=== PATIENT | female | born 1945 | race Caucasian/White ===

== ENCOUNTER 2018-06-15 21:37 | Inpatient (IN) | payer MEDICARE, MEDICAID | END 2018-06-19 15:06 | disposition home or self-care (01) | LOC: ED HOLD 06-16 00:14 → ORTHO 4S 06-18 18:27 → ER 21:37 → ORTHO 4S 06-16 04:00 | DX: J96.90 Respiratory failure, unspecified, unspecified whether with hypoxia or hypercapnia (principal); J44.1 Chronic obstructive pulmonary disease with (acute) exacerbation ==

== ENCOUNTER 2018-07-03 09:41 | Emergency (ER) | payer MEDICARE, MEDICAID ==
[~2018-07-03] VITALS: Ht 149.9 cm; Wt 47.7 kg
[~2018-07-03 09:41] MED LIST: ALBU18HF2 INH; ALBU2.5V7 NEB; BAC10T PO; BUDE10.22 INH; CEFD300C3 PO; CYA500T PO; FLUT15.88; LACT1CAP26 PO; MONT10TA21 PO; NITR0.4T51 SL; PRED10TA23 PO; ROPI0.252 PO; SENN-162 PO; TRAZ-219 PO
[2018-07-03 09:53] VITALS: BP 108/61
[2018-07-03] MEDS ORDERED: ONDA8TAB13 PO (10:15)
[2018-07-03] MEDS ORDERED: morphine 4 MG/ML inj SYRINge IM ONE (10:20)
[2018-07-03] MEDS ORDERED: ondansetron 4mg rapidly disintigrating tab PO ONE (10:20)
[2018-07-03] MEDS ORDERED: cloNIDine 0.1 MG/24 HOUR patch (7 day patch) TD ONE (10:20)
== END 2018-07-03 10:35 | disposition home or self-care (01) ==
LOC: ER 09:42
DX: F11.23 Opioid dependence with withdrawal (principal); I25.2 Old myocardial infarction; J44.9 Chronic obstructive pulmonary disease, unspecified; F17.200 Nicotine dependence, unspecified, uncomplicated; F12.90 Cannabis use, unspecified, uncomplicated; Z90.710 Acquired absence of both cervix and uterus; Z88.6 Allergy status to analgesic agent; Z91.041 Radiographic dye allergy status
CPT/HCPCS: 96372; 99283; J2270

== ENCOUNTER 2018-07-03 20:26 | Emergency (ER) | payer MEDICARE, MEDICAID ==
[~2018-07-03] VITALS: Ht 149.9 cm; Wt 45.0 kg
[~2018-07-03 20:26] MED LIST changes: +ONDA8TAB13 PO
[2018-07-03 20:36] VITALS: BP 138/84
[2018-07-03] MEDS ORDERED: HYDROmorphone 2mg tablet PO PRN (22:50)
[2018-07-03] MEDS ORDERED: cloNIDine 0.1 mg tablet PO ONE (22:50)
[2018-07-03] MEDS ORDERED: ondansetron 4mg rapidly disintigrating tab PO ONE (22:50)
== END 2018-07-03 23:04 | disposition home or self-care (01) ==
LOC: ER 20:26
DX: F11.23 Opioid dependence with withdrawal (principal); I25.2 Old myocardial infarction; J44.9 Chronic obstructive pulmonary disease, unspecified; G89.29 Other chronic pain; F12.90 Cannabis use, unspecified, uncomplicated; Z88.6 Allergy status to analgesic agent; Z88.8 Allergy status to other drugs, medicaments and biological substances; Z90.710 Acquired absence of both cervix and uterus
CPT/HCPCS: 99284

== ENCOUNTER 2018-07-04 13:33 | Emergency (ER) | payer MEDICARE, MEDICAID ==
[~2018-07-04] VITALS: Ht 149.9 cm; Wt 45.5 kg
[2018-07-04] MEDS ORDERED: normal saline 1000ML IV soln IVB ONE (14:50)
[2018-07-04 15:30] LABS: BASOPHILS # (AUTO) 0.1 X10'3 (0-0.2); BASOPHILS % (AUTO) 0.8 % (0-1); EOSINOPHILS # (AUTO) 0.2 X10'3 (0-0.9); EOSINOPHILS % (AUTO) 2.1 % (0-6); HEMOGLOBIN 12.1 g/dl (12.0-16.0); LYMPHOCYTES # (AUTO) 1.7 X10'3 (1.1-4.8); MEAN CORPUSCULAR HEMOGLOBIN 31.1 PG (27.0-31.0); MEAN CORPUSCULAR HGB CONC 32.6 g/dL (33.0-36.5); MEAN CORPUSCULAR VOLUME 95.4 FL (78-98); MEAN PLATELET VOLUME 6.6 FL (7.4-10.4); MONOCYTES # (AUTO) 0.3 X10'3 (0-0.9); MONOCYTES % (AUTO) 3.5 % (2-12); NEUTROPHILS % (AUTO) 69.6 % (42-75); PLATELET COUNT 375 X10'3 (140-440); RED BLOOD COUNT 3.88 X10'6 (4.20-5.60); RED CELL DISTRIBUTION WIDTH 15.8 % (11.5-14.5); WHITE BLOOD COUNT 7.1 X10'3 (4.5-11.0)
[2018-07-04 15:37] LABS: ALANINE AMINOTRANSFERASE 10 U/L (12-78); ALBUMIN 3.4 G/DL (3.4-5.0); ALKALINE PHOSPHATASE 52 IU/L (46-116); ANION GAP 9 (8-16); ASPARTATE AMINO TRANSFERASE 12 U/L (10-37); BILIRUBIN,TOTAL 0.2 MG/DL (0.1-1.0); BLOOD UREA NITROGEN 12 MG/DL (7-18); BUN/CREATININE RATIO 19.4 (6.6-38.0); CHLORIDE 102 MMOL/L (99-107); CREATININE 0.62 MG/DL (0.40-0.90); ETHANOL 0.214 GM/DL (0.0-0.010); GLUCOSE 80 MG/DL (70-104); POTASSIUM 3.5 MMOL/L (3.5-5.1); SODIUM 140 MMOL/L (135-145); TOTAL CARBON DIOXIDE 28.8 MMOL/L (24-32); TOTAL PROTEIN 6.9 G/DL (6.4-8.2); eGFR > 90 ML/MIN
--- NOTE | 2018-07-04 16:22 | NUR ---
FIRST STRIAGHT CATH ATTEMPTED AT THIS TIME, NOT ABLE TO COLLECT URINE DUE TO EMPTY BLADDER.
--- NOTE | 2018-07-04 17:14 | NUR ---
pt not cooperative with cleaning wound, kept pulling away, yelling "Ow! Stop it! That hurts!" I explained to patient that the doctor wants her wound to be cleaned to make sure she doesn't need stitches. Dr. Lima made aware.
[2018-07-04 18:30] VITALS: BP 98/55
== END 2018-07-04 18:32 | disposition home or self-care (01) ==
LOC: ER 13:33
DX: S00.83XA Contusion of other part of head, initial encounter (principal); W01.198A Fall on same level from slipping, tripping and stumbling with subsequent striking against other object, initial encounter; Y93.89 Activity, other specified; Y92.018 Other place in single-family (private) house as the place of occurrence of the external cause; F10.120 Alcohol abuse with intoxication, uncomplicated; F11.20 Opioid dependence, uncomplicated; Y90.7 Blood alcohol level of 200-239 mg/100 ml; B18.2 Chronic viral hepatitis C; G89.29 Other chronic pain; I25.2 Old myocardial infarction; J44.9 Chronic obstructive pulmonary disease, unspecified; R10.9 Unspecified abdominal pain; F12.90 Cannabis use, unspecified, uncomplicated; Z90.710 Acquired absence of both cervix and uterus; Z88.6 Allergy status to analgesic agent; Z91.041 Radiographic dye allergy status
CPT/HCPCS: 36415; 70450; 72125; 80053; 80320; 85025; 93005; 99284; J7030; 96360

== ENCOUNTER 2018-07-25 20:05 | Emergency (ER) | payer MEDICARE, MEDICAID ==
[~2018-07-25] VITALS: Ht 149.9 cm; Wt 47.7 kg
[~2018-07-25 20:05] MED LIST changes: -CEFD300C3 PO; -CYA500T PO; -NITR0.4T51 SL; -PRED10TA23 PO
[2018-07-25 22:01] LABS: CLARITY,URINE CLEAR (Clear); COLOR,URINE YELLOW (Yellow); GLUCOSE, URINE NEGATIVE (Neg); KETONES,URINE NEGATIVE (Neg); LEUKOCYTE ESTERASE ,URINE NEGATIVE (Neg); NITRITES, URINE NEGATIVE (Neg); OCCULT BLOOD,URINE NEGATIVE (Neg); PROTEIN,URINE NEGATIVE (Neg); UROBILINOGEN,URINE 0.2 E.U/dL (0.2-1.0)
[2018-07-25 22:05] LABS: UA COLLECTION TYPE CLN CATCH MIDSTREAM
[2018-07-25] MEDS ORDERED: ipratropium/albuterol 3ml nebule NEB ONE (22:35)
[2018-07-25 22:50] LABS: BASOPHILS # (AUTO) 0.1 X10'3 (0-0.2); BASOPHILS % (AUTO) 0.7 % (0-1); EOSINOPHILS # (AUTO) 0.1 X10'3 (0-0.9); EOSINOPHILS % (AUTO) 0.7 % (0-6); HEMATOCRIT 35.3 % (35.0-45.0); HEMOGLOBIN 11.5 g/dl (12.0-16.0); LYMPHOCYTES # (AUTO) 1.5 X10'3 (1.1-4.8); LYMPHOCYTES % (AUTO) 10.6 % (21-51); MEAN CORPUSCULAR HEMOGLOBIN 31.3 PG (27.0-31.0); MEAN CORPUSCULAR HGB CONC 32.7 g/dL (33.0-36.5); MEAN CORPUSCULAR VOLUME 95.7 FL (78-98); MEAN PLATELET VOLUME 7.1 FL (7.4-10.4); MONOCYTES # (AUTO) 0.6 X10'3 (0-0.9); MONOCYTES % (AUTO) 4.3 % (2-12); NEUTROPHILS % (AUTO) 83.7 % (42-75); PLATELET COUNT 327 X10'3 (140-440); RED BLOOD COUNT 3.69 X10'6 (4.20-5.60); RED CELL DISTRIBUTION WIDTH 15.2 % (11.5-14.5); WHITE BLOOD COUNT 14.3 X10'3 (4.5-11.0)
--- NOTE | 2018-07-25 22:50 | NUR ---
RT AT BEDSIDE.
[2018-07-25 23:06] LABS: ALANINE AMINOTRANSFERASE 8 U/L (12-78); ALBUMIN 3.3 G/DL (3.4-5.0); ALBUMIN/GLOBULIN RATIO 0.9 (1.1-1.5); ALKALINE PHOSPHATASE 67 IU/L (46-116); ANION GAP 3 (8-16); ASPARTATE AMINO TRANSFERASE 8 U/L (10-37); BILIRUBIN,TOTAL 0.1 MG/DL (0.1-1.0); BLOOD UREA NITROGEN 18 MG/DL (7-18); BUN/CREATININE RATIO 33.3 (6.6-38.0); CALCIUM 9.4 MG/DL (8.5-10.1); CHLORIDE 104 MMOL/L (99-107); CREATININE 0.54 MG/DL (0.40-0.90); GLUCOSE 104 MG/DL (70-104); POTASSIUM 4.1 MMOL/L (3.5-5.1); SODIUM 138 MMOL/L (135-145); TOTAL CARBON DIOXIDE 31.2 MMOL/L (24-32); TOTAL PROTEIN 6.9 G/DL (6.4-8.2); TROPONIN I < 0.04 NG/ML (0.0-0.05); eGFR > 90 ML/MIN
[2018-07-25] MEDS ORDERED: ALBU18HF2 INH (23:12)
[2018-07-25] MEDS ORDERED: INHA1INH2 (23:12)
[2018-07-25] MEDS ORDERED: AZIT500T PO (23:12)
[2018-07-25 23:26] VITALS: BP 126/49
== END 2018-07-25 23:27 | disposition home or self-care (01) ==
LOC: ER 20:06
DX: J44.1 Chronic obstructive pulmonary disease with (acute) exacerbation (principal); G89.29 Other chronic pain; M54.5 Low back pain; J06.9 Acute upper respiratory infection, unspecified; R10.9 Unspecified abdominal pain; I25.2 Old myocardial infarction; F12.90 Cannabis use, unspecified, uncomplicated; Z90.710 Acquired absence of both cervix and uterus; Z87.891 Personal history of nicotine dependence; Z88.6 Allergy status to analgesic agent; Z88.8 Allergy status to other drugs, medicaments and biological substances; Z79.899 Other long term (current) drug therapy
CPT/HCPCS: 36415; 71045; 80053; 81003; 84484; 85025; 94640; 94760; 99284

== ENCOUNTER 2018-11-20 00:38 | Emergency (ER) | payer MEDICARE, MEDICAID ==
[~2018-11-20] VITALS: Ht 149.9 cm; Wt 45.5 kg
[~2018-11-20 00:38] MED LIST changes: +ASPI-1265 PO; -BAC10T PO; +CYCL-1 PO; +ESTR2TAB6 PO; -FLUT15.88; +INHA1INH2; +MORP30TA PO; +NITR0.4T51; +OXYC-145 PO
[2018-11-20 02:40] VITALS: BP 118/70
--- NOTE | 2018-11-20 02:42 | NUR ---
PT REFUSED LAB DRAW.
--- NOTE | 2018-11-20 02:42 | NUR ---
WHILE ATTEMPTING TO GET A LAB DRAW, PT ADMITTED TO DRINKING ETOH TONIGHT AND TAKING HER PAIN MEDS
[2018-11-20 02:52] LABS: CLARITY,URINE CLEAR (Clear); COLOR,URINE YELLOW (Yellow); GLUCOSE, URINE NEGATIVE (Neg); KETONES,URINE NEGATIVE (Neg); LEUKOCYTE ESTERASE ,URINE NEGATIVE (Neg); NITRITES, URINE NEGATIVE (Neg); OCCULT BLOOD,URINE TRACE-INTACT (Neg); PROTEIN,URINE NEGATIVE (Neg); UROBILINOGEN,URINE 0.2 E.U/dL (0.2-1.0)
[2018-11-20 03:01] LABS: UA COLLECTION TYPE OTHER
[2018-11-20 03:02] LABS: BACTERIA,URINE FEW /HPF (Neg); RBC,URINE 0-2 /HPF (0-2); SQUAMOUS EPITHELIAL CELL,UR FEW /LPF (FEW); URINE AMPHETAMINE SCREEN NEGATIVE (Neg); URINE BARBITUATE SCREEN NEGATIVE (Neg); URINE BENZODIAZEPINES SCREEN NEGATIVE (Neg); URINE CANNABINOID SCREEN POSITIVE (Neg); URINE COCAINE SCREEN NEGATIVE (Neg); URINE METHADONE SCREEN NEGATIVE (Neg); URINE OPIATE SCREEN POSITIVE (Neg); URINE PHENCYCLIDINE SCREEN NEGATIVE (Neg); WBC,URINE NONE SEEN /HPF (0-4)
== END 2018-11-20 03:32 | disposition home or self-care (01) ==
LOC: ER 00:39
DX: M25.551 Pain in right hip (principal); R51 Headache; M54.5 Low back pain; G89.29 Other chronic pain; F10.129 Alcohol abuse with intoxication, unspecified; I25.10 Atherosclerotic heart disease of native coronary artery without angina pectoris; I25.2 Old myocardial infarction; J44.9 Chronic obstructive pulmonary disease, unspecified; F12.90 Cannabis use, unspecified, uncomplicated; Z86.19 Personal history of other infectious and parasitic diseases; Z90.710 Acquired absence of both cervix and uterus; Z88.5 Allergy status to narcotic agent; Z88.8 Allergy status to other drugs, medicaments and biological substances; Z79.82 Long term (current) use of aspirin; Z79.899 Other long term (current) drug therapy; Y90.9 Presence of alcohol in blood, level not specified; W18.39XA Other fall on same level, initial encounter; Y93.89 Activity, other specified; Y92.89 Other specified places as the place of occurrence of the external cause; Y99.8 Other external cause status
CPT/HCPCS: 36415; 70450; 72110; 72192; 73502; 80305; 81001; 99284

== ENCOUNTER 2018-12-09 20:03 | Inpatient (IN) | payer MEDICARE, MEDICAID ==
[~2018-12-09] VITALS: Ht 149.9 cm; Wt 46.4 kg
[2018-12-09 21:06] LABS: BASOPHILS # (AUTO) 0.1 X10'3 (0-0.2); BASOPHILS % (AUTO) 0.8 % (0-1); EOSINOPHILS # (AUTO) 0.2 X10'3 (0-0.9); EOSINOPHILS % (AUTO) 2.2 % (0-6); HEMATOCRIT 38.5 % (35.0-45.0); HEMOGLOBIN 12.8 g/dl (12.0-16.0); LYMPHOCYTES # (AUTO) 1.4 X10'3 (1.1-4.8); LYMPHOCYTES % (AUTO) 12.8 % (21-51); MEAN CORPUSCULAR HGB CONC 33.4 g/dL (33.0-36.5); MEAN CORPUSCULAR VOLUME 95.9 FL (78-98); MEAN PLATELET VOLUME 6.9 FL (7.4-10.4); MONOCYTES # (AUTO) 0.6 X10'3 (0-0.9); MONOCYTES % (AUTO) 5.5 % (2-12); NEUTROPHILS # (AUTO) 8.5 X10'3 (1.8-7.7); NEUTROPHILS % (AUTO) 78.7 % (42-75); PLATELET COUNT 370 X10'3 (140-440); RED BLOOD COUNT 4.01 X10'6 (4.20-5.60); WHITE BLOOD COUNT 10.8 X10'3 (4.5-11.0)
[2018-12-09] MEDS ORDERED: ondansetron 4mg rapidly disintigrating tab PO ONE (21:15)
[2018-12-09 21:18] LABS: ALANINE AMINOTRANSFERASE 10 U/L (12-78); ALBUMIN 3.7 G/DL (3.4-5.0); ALBUMIN/GLOBULIN RATIO 1.1 (1.1-1.5); ALKALINE PHOSPHATASE 55 IU/L (46-116); ANION GAP 7 (8-16); ASPARTATE AMINO TRANSFERASE 7 U/L (10-37); BILIRUBIN,TOTAL 0.2 MG/DL (0.1-1.0); BLOOD UREA NITROGEN 12 MG/DL (7-18); CALCIUM 9.2 MG/DL (8.5-10.1); CHLORIDE 103 MMOL/L (99-107); GLUCOSE 94 MG/DL (70-104); POTASSIUM 3.8 MMOL/L (3.5-5.1); SODIUM 140 MMOL/L (135-145); TOTAL PROTEIN 7.1 G/DL (6.4-8.2); eGFR > 90 ML/MIN
[2018-12-09] MEDS ORDERED: morphine 4 MG/ML inj SYRINge IM ONE (21:20)
[2018-12-09] MEDS ORDERED: iohexol 350MG/ML 100ml bottle IV ONE (21:28)
[2018-12-09 21:52] LABS: PARTIAL THROMBOPLASTIN TIME 29 SECONDS (22-32)
--- NOTE | 2018-12-09 22:55 | NUR ---
ULTRASOUND IV PLACED FOR CT CONTRAST, PAGED CT
--- NOTE | 2018-12-09 23:15 | NUR ---
NOTIFIED BY NEUROLOGY PROFESSOR THAT ULTRASOUND IV DOES NOT FLUSH FAST ENOUGH TO USE FOR CONTRAST. WILL PLACE SECOND LINE
[2018-12-10] VITALS (14 sets, daily range): BP systolic 114–154; BP diastolic 55–104
--- NOTE | 2018-12-10 00:08 | NUR ---
TOLD BY CT THAT SECOND IV WAS "WORSE THAN FIRST IV" TO USE FOR CT CONTRAST.
--- NOTE | 2018-12-10 00:12 | NUR ---
WAS NOT NOTIFIED BY GENERAL REPAIRER THAT PT WAS GOING TO CT OR IF EITHER IV SITES WERE ACCETABLE FOR CT CONTRAST AFTER ALL
[2018-12-10] MEDS ORDERED: BACL10TA PO (01:24)
[2018-12-10] MEDS ORDERED: MELA3TAB64 PO (01:24)
[2018-12-10] MEDS ORDERED: TIOT18CA3 INH (01:27)
[2018-12-10] MEDS ORDERED: magnesium hydroxide 30ml (MOM) UD suspension PO PRN (02:00)
[2018-12-10] MEDS ORDERED: mag hydrox/Alum hydrox/simeth 30ml oral suspension PO PRN (02:00)
[2018-12-10] MEDS ORDERED: acetaminophen 325mg tablet PO PRN (02:00)
[2018-12-10] MEDS ORDERED: ondansetron/PF 4mg/2ml inj IV PRN (02:00)
[2018-12-10] MEDS ORDERED: albuterol 2.5 MG/3 ML nebule NEB PRN (02:05)
[2018-12-10] MEDS ORDERED: non-formulary drug (Albuterol Sulfate (Ventolin Hfa) 2 PUFFS) INH PRN (02:05)
[2018-12-10 02:11] LABS: MAGNESIUM 1.7 MG/DL (1.5-2.4)
[2018-12-10] MEDS: morphine 2 MG/ML inj. syringe IV PRN ×3 (02:32→19:15)
[2018-12-10] MEDS ORDERED: ipratropium 0.5 MG/2.5ML nebule IH SCH (03:00)
--- NOTE | 2018-12-10 04:25 | NUR ---
I have received report from TRENT Campa and had the opportunity to ask questions and will assume patient care when pt arrives to unit.
--- NOTE | 2018-12-10 04:45 | NUR ---
Patient transferred to room 350 from ED. Patient transferred to bed via wheelchair and is A&O x2, VSS
--- NOTE | 2018-12-10 05:58 | NUR ---
Pt is insistent on taking her baclofen "right now" and states she absolutely cannot wait another hour to take it. Dr. Leone was called and he said it is ok to go ahead and give her the baclofen now.
[2018-12-10] MEDS: baclofen 10mg tablet PO SCH ×2 (06:06→16:51)
--- NOTE | 2018-12-10 06:35 | NUR ---
Problems reprioritized. Patient report given, questions answered & plan of care reviewed with TRENT Guy.
--- NOTE | 2018-12-10 06:37 | NUR ---
Patient in room [facility] 350. I have received report from Warner NEWMAN and had the opportunity to ask questions and assume patient care.
[2018-12-10] MEDS ORDERED: LORazepam 2 mg/ml vial IV ONE (06:45)
[2018-12-10] MEDS: estradiol 1mg tablet PO SCH (09:10)
[2018-12-10] MEDS: aspirin 81mg tab.chew PO SCH (09:11)
[2018-12-10] MEDS: oxyCODONE/APAP 5-325mg tablet PO SCH ×2 (09:11→16:30)
[2018-12-10] MEDS: ipratropium/albuterol 3ml nebule NEB SCH ×3 (09:20→20:03)
[2018-12-10] MEDS: morphine IR (immed. release) 30mg tablet PO PRN (11:10)
--- NOTE | 2018-12-10 11:12 | NUR ---
gave patient her pain med. Watched her swallow it and take 30mls of water because she is NPO
[2018-12-10] MEDS: pantoprazole 40 MG vial IV SCH (14:04)
[2018-12-10] MEDS ORDERED: fentaNYL/PF 50MCG/1 ML 2ML syringe ONE (15:47)
[2018-12-10] MEDS ORDERED: LIDOcaine 1%/PF 5ML 10 MG/ML VIAL SQ ONE (15:50)
[2018-12-10] MEDS ORDERED: fentaNYL/PF 50MCG/1 ML 2ML syringe IV PRN (15:50)
--- NOTE | 2018-12-10 18:56 | NUR ---
Problems reprioritized. Patient report given, questions answered & plan of care reviewed with Margarita NEWMAN.
--- NOTE | 2018-12-10 20:00 | NUR ---
Dr. Rivas made aware that pts stopcock from chest tube was turned off, and pt had increase SOB and anxiety and once turned on there is a small air leak, O2 97% on 3 L, Morphine was given for pain, along with a breathing treatment. Ordered stat chest xray, and a dose of Ativan 1mg PO. Will conitnue to monitor as ordered. Addendum: 12/11/18 at 0014 by Margarita Sifuentes RN Amended: Links added.
[2018-12-10] MEDS ORDERED: LORazepam 1 MG tablet PO ONE (20:35)
[2018-12-10] MEDS: traZODone 50mg tablet PO SCH (21:54)
[2018-12-10] MEDS: ROPINIRole 0.25mg tablet PO SCH (21:55)
[2018-12-10] MEDS: Melatonin 3mg tablet PO SCH (21:57)
[2018-12-11] VITALS: BP 104/68
--- NOTE | 2018-12-11 01:00 | NUR ---
Pt is resting very comfortably, tried to awaken her for Baclofen and Percocet pt woke up and shook her head no. Pt very comfortable and will continue to monitor. Addendum: 12/11/18 at 0122 by Margarita Sifuentes RN Amended: Links added.
[2018-12-11] MEDS: baclofen 10mg tablet PO SCH ×5 (01:08→21:05)
[2018-12-11] MEDS: oxyCODONE/APAP 5-325mg tablet PO SCH ×4 (01:08→16:07)
[2018-12-11] MEDS: morphine IR (immed. release) 30mg tablet PO PRN ×2 (03:14→21:05)
--- NOTE | 2018-12-11 06:02 | NUR ---
Problems reprioritized. Patient report given, questions answered & plan of care reviewed with Pati NEWMAN. Addendum: 12/11/18 at 0603 by Margarita Sifuentes RN Amended: Links added.
--- NOTE | 2018-12-11 06:25 | NUR ---
Patient in room [facility] 350. I have received report from TRENT Avila and had the opportunity to ask questions and assume patient care.
[2018-12-11 06:48] LABS: BASOPHILS # (AUTO) 0.1 X10'3 (0-0.2); BASOPHILS % (AUTO) 0.7 % (0-1); EOSINOPHILS # (AUTO) 0.3 X10'3 (0-0.9); EOSINOPHILS % (AUTO) 3.7 % (0-6); HEMATOCRIT 36.5 % (35.0-45.0); HEMOGLOBIN 12.1 g/dl (12.0-16.0); LYMPHOCYTES # (AUTO) 1.6 X10'3 (1.1-4.8); MEAN CORPUSCULAR HEMOGLOBIN 31.7 PG (27.0-31.0); MEAN CORPUSCULAR HGB CONC 33.1 g/dL (33.0-36.5); MEAN CORPUSCULAR VOLUME 95.6 FL (78-98); MEAN PLATELET VOLUME 6.9 FL (7.4-10.4); MONOCYTES # (AUTO) 0.6 X10'3 (0-0.9); MONOCYTES % (AUTO) 7.2 % (2-12); NEUTROPHILS # (AUTO) 6.1 X10'3 (1.8-7.7); NEUTROPHILS % (AUTO) 70.4 % (42-75); PLATELET COUNT 360 X10'3 (140-440); RED BLOOD COUNT 3.81 X10'6 (4.20-5.60); RED CELL DISTRIBUTION WIDTH 15.8 % (11.5-14.5); WHITE BLOOD COUNT 8.6 X10'3 (4.5-11.0)
[2018-12-11 07:01] LABS: ALANINE AMINOTRANSFERASE 10 U/L (12-78); ALBUMIN 3.3 G/DL (3.4-5.0); ALKALINE PHOSPHATASE 49 IU/L (46-116); ANION GAP 6 (8-16); ASPARTATE AMINO TRANSFERASE 12 U/L (10-37); BILIRUBIN,TOTAL 0.3 MG/DL (0.1-1.0); BLOOD UREA NITROGEN 11 MG/DL (7-18); BUN/CREATININE RATIO 22.4 (6.6-38.0); CALCIUM 8.7 MG/DL (8.5-10.1); CHLORIDE 104 MMOL/L (99-107); CREATININE 0.49 MG/DL (0.40-0.90); GLUCOSE 80 MG/DL (70-104); POTASSIUM 4.2 MMOL/L (3.5-5.1); SODIUM 142 MMOL/L (135-145); TOTAL CARBON DIOXIDE 31.9 MMOL/L (24-32); TOTAL PROTEIN 6.5 G/DL (6.4-8.2); eGFR > 90 ML/MIN
[2018-12-11 07:21] VITALS: BP 106/67
[2018-12-11] MEDS: pantoprazole 40 MG vial IV SCH (08:23)
[2018-12-11] MEDS: aspirin 81mg tab.chew PO SCH (08:23)
[2018-12-11] MEDS: estradiol 1mg tablet PO SCH (08:24)
[2018-12-11] MEDS: ipratropium/albuterol 3ml nebule NEB SCH ×3 (09:15→19:29)
--- NOTE | 2018-12-11 10:15 | NUR ---
Patients' dog can no longer be on the floor. I got in report from the natural gas plant supervisor nurse that he was growling at staff. Today during a staff emergency multiple staff members ran into the room to assist and the dog barked, growled, and lunged at staff. Charge nurse, Malena was made aware she talked to Sandra, packing house laborer and we are within our rights to keep the dog off of the floor is he is growling/lunging at staff. The patient said, "he won't do it again". The patients' son is aware and is okay with taking the dog off of the floor.
[2018-12-11 11:30] VITALS: BP 103/58
--- NOTE | 2018-12-11 14:00 | NUR ---
Patients attempted to bring the dog up here again. I asked him if he had been told that the dog couldn't be up here. The patient said, "What?" I explained that we can't have a dog that is growling/lunging at staff if we need to come in the room. She then said, "I have a prescription for her for anxiety. The lady accidentally hit the wrong button and all these people came in and startled her and me. She (the dog) won't do that again." I said that it doesn't matter, we have to be able to run into the room in an event of an emergency; even if it was an accident that the button was pushed that time. I also said that we may have to get over to B bed as well, and we can't have a dog growling at us. The was very understanding and agreed to take the dog outside.
--- NOTE | 2018-12-11 16:09 | NUR ---
gave pain med and watched pt swallow
[2018-12-11 18:00] VITALS: BP 112/43
--- NOTE | 2018-12-11 18:36 | NUR ---
Problems reprioritized. Patient report given, questions answered & plan of care reviewed with TRENT Douglas.
[2018-12-11] MEDS: LORazepam 1 MG tablet PO PRN (20:20)
[2018-12-11] MEDS: Melatonin 3mg tablet PO SCH (21:04)
[2018-12-11] MEDS: traZODone 50mg tablet PO SCH (21:05)
[2018-12-11] MEDS: ROPINIRole 0.25mg tablet PO SCH (21:05)
[2018-12-12] VITALS: BP 102/45
[2018-12-12] MEDS: oxyCODONE/APAP 5-325mg tablet PO SCH ×3 (00:27→16:05)
[2018-12-12 06:01] LABS: ALANINE AMINOTRANSFERASE 11 U/L (12-78); ALBUMIN 3.1 G/DL (3.4-5.0); ALBUMIN/GLOBULIN RATIO 0.9 (1.1-1.5); ALKALINE PHOSPHATASE 47 IU/L (46-116); ANION GAP 8 (8-16); ASPARTATE AMINO TRANSFERASE 12 U/L (10-37); BILIRUBIN,TOTAL 0.2 MG/DL (0.1-1.0); BLOOD UREA NITROGEN 6 MG/DL (7-18); BUN/CREATININE RATIO 11.5 (6.6-38.0); CALCIUM 8.9 MG/DL (8.5-10.1); CHLORIDE 105 MMOL/L (99-107); CREATININE 0.52 MG/DL (0.40-0.90); GLUCOSE 112 MG/DL (70-104); POTASSIUM 4.1 MMOL/L (3.5-5.1); SODIUM 143 MMOL/L (135-145); TOTAL CARBON DIOXIDE 30.5 MMOL/L (24-32); TOTAL PROTEIN 6.4 G/DL (6.4-8.2); eGFR > 90 ML/MIN
[2018-12-12 06:05] LABS: BASOPHILS # (AUTO) 0.1 X10'3 (0-0.2); BASOPHILS % (AUTO) 0.7 % (0-1); EOSINOPHILS # (AUTO) 0.3 X10'3 (0-0.9); EOSINOPHILS % (AUTO) 3.6 % (0-6); HEMATOCRIT 35.9 % (35.0-45.0); HEMOGLOBIN 11.9 g/dl (12.0-16.0); LYMPHOCYTES # (AUTO) 1.3 X10'3 (1.1-4.8); LYMPHOCYTES % (AUTO) 17.2 % (21-51); MEAN CORPUSCULAR HEMOGLOBIN 31.9 PG (27.0-31.0); MEAN CORPUSCULAR HGB CONC 33.1 g/dL (33.0-36.5); MEAN CORPUSCULAR VOLUME 96.3 FL (78-98); MEAN PLATELET VOLUME 7.1 FL (7.4-10.4); MONOCYTES # (AUTO) 0.6 X10'3 (0-0.9); MONOCYTES % (AUTO) 7.5 % (2-12); NEUTROPHILS # (AUTO) 5.4 X10'3 (1.8-7.7); PLATELET COUNT 313 X10'3 (140-440); RED BLOOD COUNT 3.73 X10'6 (4.20-5.60); RED CELL DISTRIBUTION WIDTH 15.9 % (11.5-14.5); WHITE BLOOD COUNT 7.5 X10'3 (4.5-11.0)
--- NOTE | 2018-12-12 06:18 | NUR ---
Problems reprioritized. Patient report given, questions answered & plan of care reviewed with Pilar NEWMAN.
--- NOTE | 2018-12-12 06:20 | NUR ---
Patient in room [facility]. I have received report from TRENT Douglas and had the opportunity to ask questions and assume patient care.
[2018-12-12 07:07] VITALS: BP 119/48
[2018-12-12] MEDS: estradiol 1mg tablet PO SCH (07:24)
[2018-12-12] MEDS: aspirin 81mg tab.chew PO SCH (07:24)
[2018-12-12] MEDS: baclofen 10mg tablet PO SCH ×3 (07:24→21:18)
[2018-12-12] MEDS: pantoprazole 40mg Tablet.DR PO SCH (07:25)
[2018-12-12] MEDS: ipratropium/albuterol 3ml nebule NEB SCH ×3 (08:22→20:45)
[2018-12-12] MEDS: morphine IR (immed. release) 30mg tablet PO PRN ×2 (09:08→21:31)
[2018-12-12 11:19] VITALS: BP 132/110
[2018-12-12] MEDS: LORazepam 1 MG tablet PO PRN (11:44)
--- NOTE | 2018-12-12 18:50 | NUR ---
Problems reprioritized. Patient report given, questions answered & plan of care reviewed with TRENT Samayoa.
--- NOTE | 2018-12-12 19:04 | NUR ---
Patient in room [facility] 350. I have received report from Pati NWEMAN and had the opportunity to ask questions and assume patient care.
[2018-12-12 20:00] VITALS: BP 111/53
[2018-12-12] MEDS: Melatonin 3mg tablet PO SCH (21:18)
[2018-12-12] MEDS: traZODone 50mg tablet PO SCH (21:18)
[2018-12-12] MEDS: ROPINIRole 0.25mg tablet PO SCH (21:18)
[2018-12-13] VITALS: BP 116/57
[2018-12-13] MEDS: morphine 2 MG/ML inj. syringe IV PRN (05:08)
[2018-12-13 05:47] LABS: ALANINE AMINOTRANSFERASE 10 U/L (12-78); ALBUMIN 3.2 G/DL (3.4-5.0); ALBUMIN/GLOBULIN RATIO 0.9 (1.1-1.5); ALKALINE PHOSPHATASE 50 IU/L (46-116); ANION GAP 5 (8-16); ASPARTATE AMINO TRANSFERASE 10 U/L (10-37); BILIRUBIN,TOTAL 0.2 MG/DL (0.1-1.0); BLOOD UREA NITROGEN 11 MG/DL (7-18); BUN/CREATININE RATIO 23.9 (6.6-38.0); CALCIUM 9.1 MG/DL (8.5-10.1); CHLORIDE 106 MMOL/L (99-107); CREATININE 0.46 MG/DL (0.40-0.90); GLUCOSE 101 MG/DL (70-104); POTASSIUM 4.2 MMOL/L (3.5-5.1); SODIUM 144 MMOL/L (135-145); TOTAL CARBON DIOXIDE 32.9 MMOL/L (24-32); TOTAL PROTEIN 6.8 G/DL (6.4-8.2); eGFR > 90 ML/MIN
[2018-12-13 06:07] LABS: BASOPHILS # (AUTO) 0.1 X10'3 (0-0.2); EOSINOPHILS # (AUTO) 0.3 X10'3 (0-0.9); EOSINOPHILS % (AUTO) 3.8 % (0-6); HEMATOCRIT 38.9 % (35.0-45.0); HEMOGLOBIN 12.8 g/dl (12.0-16.0); LYMPHOCYTES # (AUTO) 1.7 X10'3 (1.1-4.8); LYMPHOCYTES % (AUTO) 22.3 % (21-51); MEAN CORPUSCULAR HEMOGLOBIN 31.5 PG (27.0-31.0); MEAN CORPUSCULAR HGB CONC 32.8 g/dL (33.0-36.5); MEAN CORPUSCULAR VOLUME 95.8 FL (78-98); MEAN PLATELET VOLUME 7.5 FL (7.4-10.4); MONOCYTES # (AUTO) 0.6 X10'3 (0-0.9); MONOCYTES % (AUTO) 7.6 % (2-12); NEUTROPHILS # (AUTO) 5.1 X10'3 (1.8-7.7); NEUTROPHILS % (AUTO) 65.3 % (42-75); PLATELET COUNT 333 X10'3 (140-440); RED BLOOD COUNT 4.06 X10'6 (4.20-5.60); RED CELL DISTRIBUTION WIDTH 15.9 % (11.5-14.5); WHITE BLOOD COUNT 7.8 X10'3 (4.5-11.0)
--- NOTE | 2018-12-13 06:16 | NUR ---
Problems reprioritized. Patient report given, questions answered & plan of care reviewed with Citlalli NEWMAN.
[2018-12-13 07:00] VITALS: BP 110/54
[2018-12-13] MEDS: LORazepam 1 MG tablet PO PRN ×2 (07:07→16:28)
[2018-12-13] MEDS: pantoprazole 40mg Tablet.DR PO SCH (08:00)
[2018-12-13] MEDS: aspirin 81mg tab.chew PO SCH (08:01)
[2018-12-13] MEDS: estradiol 1mg tablet PO SCH (08:01)
[2018-12-13] MEDS: oxyCODONE/APAP 5-325mg tablet PO SCH ×4 (08:01→23:54)
[2018-12-13] MEDS: baclofen 10mg tablet PO SCH ×3 (08:01→21:24)
[2018-12-13] MEDS: morphine IR (immed. release) 30mg tablet PO PRN ×2 (09:19→21:25)
[2018-12-13] MEDS: ipratropium/albuterol 3ml nebule NEB SCH ×3 (09:24→20:51)
--- NOTE | 2018-12-13 18:15 | NUR ---
Patient in room [facility] 350. I have received report from TRENT Bowman and had the opportunity to ask questions and assume patient care.
[2018-12-13 20:00] VITALS: BP 104/55
[2018-12-13] MEDS: ROPINIRole 0.25mg tablet PO SCH (21:24)
[2018-12-13] MEDS: traZODone 50mg tablet PO SCH (21:24)
[2018-12-13] MEDS: Melatonin 3mg tablet PO SCH (21:25)
[2018-12-14] VITALS: BP 104/55
[2018-12-14] MEDS: morphine 2 MG/ML inj. syringe IV PRN ×2 (04:32→10:27)
[2018-12-14 06:01] LABS: BASOPHILS # (AUTO) 0.1 X10'3 (0-0.2); BASOPHILS % (AUTO) 1.3 % (0-1); EOSINOPHILS # (AUTO) 0.4 X10'3 (0-0.9); EOSINOPHILS % (AUTO) 5.3 % (0-6); HEMATOCRIT 36.6 % (35.0-45.0); HEMOGLOBIN 12.1 g/dl (12.0-16.0); LYMPHOCYTES # (AUTO) 1.7 X10'3 (1.1-4.8); MEAN CORPUSCULAR HEMOGLOBIN 31.8 PG (27.0-31.0); MEAN CORPUSCULAR VOLUME 96.3 FL (78-98); MEAN PLATELET VOLUME 7.3 FL (7.4-10.4); MONOCYTES # (AUTO) 0.4 X10'3 (0-0.9); MONOCYTES % (AUTO) 5.5 % (2-12); NEUTROPHILS # (AUTO) 4.8 X10'3 (1.8-7.7); NEUTROPHILS % (AUTO) 64.9 % (42-75); PLATELET COUNT 362 X10'3 (140-440); RED CELL DISTRIBUTION WIDTH 15.8 % (11.5-14.5); WHITE BLOOD COUNT 7.4 X10'3 (4.5-11.0)
[2018-12-14 06:22] LABS: ALANINE AMINOTRANSFERASE 10 U/L (12-78); ALBUMIN 3.2 G/DL (3.4-5.0); ALBUMIN/GLOBULIN RATIO 0.9 (1.1-1.5); ALKALINE PHOSPHATASE 54 IU/L (46-116); ANION GAP 6 (8-16); ASPARTATE AMINO TRANSFERASE 10 U/L (10-37); BILIRUBIN,TOTAL 0.2 MG/DL (0.1-1.0); BLOOD UREA NITROGEN 12 MG/DL (7-18); BUN/CREATININE RATIO 21.8 (6.6-38.0); CHLORIDE 104 MMOL/L (99-107); CREATININE 0.55 MG/DL (0.40-0.90); GLUCOSE 102 MG/DL (70-104); POTASSIUM 3.9 MMOL/L (3.5-5.1); SODIUM 145 MMOL/L (135-145); TOTAL CARBON DIOXIDE 34.9 MMOL/L (24-32); TOTAL PROTEIN 6.9 G/DL (6.4-8.2); eGFR > 90 ML/MIN
--- NOTE | 2018-12-14 06:32 | NUR ---
Problems reprioritized. Patient report given, questions answered & plan of care reviewed with TRENT Valero.
--- NOTE | 2018-12-14 06:45 | NUR ---
Patient in room [facility] 350. I have received report from Saulo NEWMAN and had the opportunity to ask questions and assume patient care.
[2018-12-14 07:00] VITALS: BP 116/39
--- NOTE | 2018-12-14 07:32 | NUR ---
I called Bobby BERNAL to clarify the order to clamp chest tube,he said yes. Her instructed me to unclamp the tube when patient develop shortness of breath while the chest tube is clamp. Charge nurse aware
[2018-12-14] MEDS: ipratropium/albuterol 3ml nebule NEB SCH ×2 (07:50→14:49)
[2018-12-14] MEDS: pantoprazole 40mg Tablet.DR PO SCH (08:00)
[2018-12-14] MEDS: oxyCODONE/APAP 5-325mg tablet PO SCH ×2 (08:49→16:30)
[2018-12-14] MEDS: aspirin 81mg tab.chew PO SCH (08:49)
[2018-12-14] MEDS: estradiol 1mg tablet PO SCH (08:49)
[2018-12-14] MEDS: baclofen 10mg tablet PO SCH ×2 (08:50→12:22)
[2018-12-14 11:00] VITALS: BP 121/58
--- NOTE | 2018-12-14 11:25 | NUR ---
Initial: Pt admit w/ SOB and R pneumothorax s/p CT placement. No output documented in I&O possibly CT removal soon per MD note. Pt PO 100% regular diet meeting needs. LBM 12/14 per EMR. No nutrition concerns at this time. Will continue to monitor. Rec: 1. continue regular diet 2. monitor for ONS needs if PO declines 3. wt per rx Addendum: 12/14/18 at [address] Amended: Links added.
--- NOTE | 2018-12-14 12:15 | NUR ---
Patient requesting pain medication currently, patient had pain medication over 1 hour ago, MS 2mg IVP, informed patient that she doesn't have pain medication available at this time. Pain MD from [facility] in room with patient. Patient states that pain medications are not working for her.
[2018-12-14] MEDS: LORazepam 1 MG tablet PO PRN (12:23)
--- NOTE | 2018-12-14 14:58 | NUR ---
Patient was told that she has discharge order for today. Patient's stated "I have no home!". I contacted Automobile U[employer]ol[employer] Trim Installer Latricia about the discharge order, she stated that patient supposed to go to [place]. Latricia said she will come to talk to the patient
--- NOTE | 2018-12-14 16:38 | NUR ---
Discharge instructions given to patient, patient verbalized understanding of all instructions made. Peripheral IV catheter removed, tip intact. Patient stated that it is her that is supposed to pick her up at 18:00 (6pm) not her son.
[2018-12-14] MEDS: morphine IR (immed. release) 30mg tablet PO PRN (18:18)
--- NOTE | 2018-12-14 18:30 | NUR ---
Patient left already when I checked her room. Prior to this she told me that her son was here but step out.
== END 2018-12-14 18:31 | disposition home or self-care (01) | DRG 200 ==
LOC: ER 20:03 → SUR 3N 12-10 04:44 → CMPBEDREQ 12-12 19:34
PROVIDERS: ADMIT Internal Medicine; ATTEND Internal Medicine
PROC: 0W9930Z Drainage of Right Pleural Cavity with Drainage Device, Percutaneous Approach (ICD-10-PCS; principal; 2018-12-10)
DX: J93.9 Pneumothorax, unspecified (principal); J96.10 Chronic respiratory failure, unspecified whether with hypoxia or hypercapnia; G89.29 Other chronic pain; F17.200 Nicotine dependence, unspecified, uncomplicated; G25.81 Restless legs syndrome; I25.10 Atherosclerotic heart disease of native coronary artery without angina pectoris; J44.9 Chronic obstructive pulmonary disease, unspecified; B19.20 Unspecified viral hepatitis C without hepatic coma; M81.0 Age-related osteoporosis without current pathological fracture; F12.90 Cannabis use, unspecified, uncomplicated; G47.00 Insomnia, unspecified; F32.9 Major depressive disorder, single episode, unspecified; M54.9 Dorsalgia, unspecified; Z88.6 Allergy status to analgesic agent; Z88.8 Allergy status to other drugs, medicaments and biological substances; Z79.82 Long term (current) use of aspirin; I25.2 Old myocardial infarction; Z59.0 Homelessness; Z90.710 Acquired absence of both cervix and uterus; Z99.81 Dependence on supplemental oxygen; Z76.5 Malingerer [conscious simulation]; Z81.8 Family history of other mental and behavioral disorders; Z79.899 Other long term (current) drug therapy; Z79.51 Long term (current) use of inhaled steroids
CPT/HCPCS: 32557; 36415; 71045; 71250; 76937; 80053; 83735; 84484; 85025; 85610; 85730; 87081; 93005; 94640; 94760; 96372; 97162; 97530; 99285; C9113; G0378; J2060; J2270; J2405; J3010; Q9967